=== PATIENT | female | born 1965 | race American Indian/Alaskan Native ===

== ENCOUNTER 2017-01-12 13:05 | Inpatient (IN) | payer MEDICAID ==
[2017-01-12 13:14] VITALS: BMI 28.1
[2017-01-12 13:17] VITALS: O2SAT 100
--- NOTE | 2017-01-12 13:18 | ED PDOC ---
Psych Transfer Clearance - Clearance Statement Clearance Statement: Reviewed vital signs, lab results and transfer papers. Patient clinically stable for psychiatric admission. Accepted by Dr. Ferris, with dx: MDD with severe psychotic features
[2017-01-12] MEDS ORDERED: Magnesium Hydroxide Susp 30 ml UD PO PRN (17:44)
[2017-01-12] MEDS ORDERED: Alum-Mag Hydrox-Simethicone Susp (30 mL) PO PRN (17:44)
[2017-01-12] MEDS ORDERED: DiphenhydrAMINE 50 mg/ml Inj IM PRN (17:44)
--- NOTE | 2017-01-12 20:03 | PCM.BM ---
<Hai Burnett - Last Filed: 01/12/17 20:01> Treatment assets and liabiliti Patient Assests: adapts well, cooperative, ADL independent Patient Liabilities: live alone, physical pain - Milieu Protocol Maintain good personal hygiene: daily Encourage regular showers, daily Remind patient to perform daily oral care, every shift Assist patient to perform ADL's Conduct patient checks and document Observation sheet: Q15 minutes Maintain personal safety: daily Educate patient to report safety concerns to staff, every shift Monitor environment for contraband/sharps Medication safety: Monitor for expected outcome, potential side effects: daily, Assess barriers to learning: every shift, Assess readiness for medication education: every shift Family Contact Family involvement: Family/SO is involved - Goals for Treatment Patient goals for treatment: feel better Discharge/Continuing Care - Education Needs Education Needs: Family Medication, Family Diagnosis/Disease Process, Family Coping Skills, Family Anger Management skills, Family Community resources, Family Activities of Daily Living, Family Pain, Family Personal Hygiene/Grooming <Sarah Zafar - Last Filed: 01/13/17 11:37> - Diagnosis (1) Substance induced mood disorder Status: Acute Interventions: Medication management, psychotherapy, psychoeducation, counseling re: substance abuse 01/13/17 11:37 (2) Cocaine use disorder, severe, dependence Status: Acute Interventions: Medication management, psychotherapy, psychoeducation, counseling re: substance abuse 01/13/17 11:38 (3) Cannabis use disorder, severe, dependence Status: Acute Interventions: Medication management, psychotherapy, psychoeducation, counseling re: substance abuse 01/13/17 11:38 <Jada Márquez - Last Filed: 01/13/17 15:56> Family Contact Family involvement: No known Family/SO Family contacted how many times per week?: 1 - Goals for Treatment Patient goals for treatment: Pt to be encouraged to attend activity and clinical groups 3-5x per week to identify at least 2 contributing factors to depression and suicide attempt. Psycho-education to be provided to patient/ family regarding benefits of medications and treatment adherence. Pt to be encouraged to participate in group milieu to develop effective coping skills to reduce depression and free of suicide ideation. Coordinate discharge resource needs by providing referral for psychiatric treatment follow up in the community. Discharge/Continuing Care - Education Needs Education Needs: Family Medication, Family Diagnosis/Disease Process, Family Coping Skills, Family Anger Management skills, Family Placement options, Family Community resources, Family Uses of Medical Equipment, Family Personal Hygiene/ Grooming, Family Aftercare Safety Plan, Patient Medication, Patient Diagnosis/ Disease Process, Patient Coping Skills, Patient Anger Management skills, Patient Placement options, Patient Community resources, Patient Uses of Medical Equipment, Patient Personal Hygiene/Grooming, Patient Aftercare Safety Plan - Discharge Discharge Criteria: Tolerates medication w/o severe side effects, Free of Suicidal thoughts, Free of agitation, Normal sleep pattern, Ability to care for self, Reduction of target symptoms Discharge to:: Home, Residential - Additional Comments 01/13/17 15:53 Pt seen and discussed in team meeting. Reason for admission discussed and reviewed with pt. Pt stated reason for admission as "I had a pnic attack or whatever you call it." Pt was easily irritable and verbally abusive with staff members. Pt was vague and minimally answering team questions. Pt superficially cooperated in team meeting. Pt's medications reviewed and discussed. Pt requesting to be prescribed high dosage of medications. Attending MD reviewed medications with pt, please refer to MD progress note for additional information. Pt appears to be malingering and medication seeking; possibly secondary gain due to possible homelessness. It is unclear whether pt is homeless or if she has an apartment as pt refuses to provide information. Treatment plan discussed with pt and reviewed. Pt has a tentative discharge date for 01/15/17. - Treatment Team Participation Discussed with Family/SO: No Was Patient/Family/SO present at Treatment Team Meeting: Yes
[2017-01-12] MEDS ORDERED: Albuterol HFA 90 mcg/actuation (8 g) INH PRN (21:24)
[2017-01-12] MEDS: Insulin Lispro (humaLOG) 100 Units/ml Inj SC SCH (21:51)
[2017-01-13 07:32] LABS: THYROID STIMULATING HORMONE 2.26 mIU/ML (0.46-4.68)
[2017-01-13] MEDS: Insulin Lispro (humaLOG) 100 Units/ml Inj SC SCH ×4 (08:39→21:47)
[2017-01-13] MEDS: Tiotropium 18 mcg Cap For Inhalation INH SCH (08:41)
[2017-01-13] MEDS: Pantoprazole 40 mg EC Tab PO SCH (08:42)
[2017-01-13] MEDS ORDERED: Pneumococcal 23-Valent Vaccine IM ONE (09:00)
--- NOTE | 2017-01-13 10:32 | CARD ---
APPROVED REPORT EKG Measurement Heart [id number] <Conclusion> Normal sinus rhythm Nonspecific T wave abnormality Abnormal ECG
--- NOTE | 2017-01-13 11:46 | PCM.PSYCH ---
Initial Psychiatric Evaluation - Initial Psychiatric Evaluation Type of Admission: Voluntary Legal Status: Capacity Chief Complaint (in patient's own words): "They were incompetent at the other hospital." Patient's Reaction to Hospitalization: Patient was irritable, evasive and likely lying at various times throughout the interview. HPI: 51 yo female w/ history of cocaine and marijuana abuse, also known to feign symptoms to gain various medical and psychiatric admission, now presented w/ vague suicidal ideation and reported CAH. Patient now denies suicidal ideation or hallucinations to ticket writer. She seems not to be telling the truth to the ticket writer and others. She continues to abuse cocaine and marijuana. She denies current alcohol abuse. She is not complaint with psychiatric treatment or follow-up. She reports depressed mood and feeling like "hurting someone" but she was being vague and possibly intentionally threatening to intimidate the ticket writer. PPHx: Multiple past psychiatric admission, not compliant with outpatient treatment or medications; does not know which medications she took in the past. PMHx: HTN, DM, h/o AL, GERD, reported history of stroke, unclear if that is accurate ALL: Tomatoes SHx: Homeless, +cocaine and marijuana, denies current ETOH use Current Medications: Active Medications Generic Name Dose Route Start Last Admin Trade Name Freq PRN Reason Stop Dose Admin Acetaminophen 650 mg 01/12/17 17:44 01/13/17 08:58 Tylenol 325mg Tab PO 650 mg Q4 PRN Administration Pain, moderate (4-7) Al Hydrox/Mg Hydrox/Simethicone 30 ml 01/12/17 17:44 Maalox Plus 30 Ml PO Q4 PRN Dyspepsia Albuterol 2 puff 01/12/17 21:24 Ventolin Hfa 90 Mcg/Actuation (8 G) INH Q6 PRN Shortness of Breath Amlodipine Besylate 10 mg 01/13/17 09:00 01/13/17 08:42 Norvasc PO 10 mg DAILY [facility] Administration Diphenhydramine HCl 50 mg 01/12/17 17:44 Benadryl IM Q6 PRN Extrapyramidal S/S Unable PO Diphenhydramine HCl 50 mg 01/12/17 17:44 Benadryl PO Q6 PRN Extrapyramidal Symptoms Haloperidol 5 mg 01/12/17 17:44 Haldol PO Q4 PRN Agitation Haloperidol Lactate 5 mg 01/12/17 17:44 Haldol IM Q4 PRN Agitation, Unable to Take PO Home Med 40 mg 01/13/17 09:00 Omeprazole [Omeprazole] PO DAILY [facility] Influenza Virus Vaccine 0.5 ml 01/13/17 17:00 Afluria (Pf)(18yr & Older) IM 01/13/17 17:01 .ONCE ONE Insulin Human Lispro 0 units 01/12/17 22:00 01/13/17 11:17 Humalog SC 3 u ACHS [facility] Administration Protocol Lorazepam 2 mg 01/12/17 17:44 Ativan IM Q4 PRN Anxiety/Agitation,Unable PO Lorazepam 2 mg 01/12/17 17:44 Ativan PO Q4 PRN Anxiety/Agitation Losartan Potassium 50 mg 01/13/17 09:00 01/13/17 08:40 Cozaar PO 50 mg DAILY [facility] Administration Magnesium Hydroxide 30 ml 01/12/17 17:44 Milk Of Magnesia PO HS PRN Constipation Metformin HCl 500 mg 01/13/17 09:00 01/13/17 08:39 Glucophage PO 500 mg BID [facility] Administration Nicotine 1 patch 01/13/17 09:00 01/13/17 11:17 Nicoderm Cq TD 1 patch DAILY [facility] Administration Pantoprazole Sodium 40 mg 01/13/17 09:00 01/13/17 08:42 Protonix Ec Tab PO 40 mg DAILY [facility] Administration Sitagliptin Phosphate 100 mg 01/13/17 09:00 01/13/17 08:38 Januvia PO 100 mg DAILY [facility] Administration Tiotropium [place] 18 mcg 01/13/17 09:00 01/13/17 08:41 Spiriva INH 18 mcg DAILY [facility] Administration Past Psychiatric History - Past Psychiatric History Previous Treatment History: Inpatient Pertinent Medical Hx (Current Medical&Sleep Prob, Allergies): Allergies Allergy/AdvReac Type Severity Reaction Status Date / Time tomatoes Allergy ITCHING Uncoded 01/12/17 13:16 Albuterol HFA [Ventolin HFA 90 mcg/actuation (8 g)] 2 puff INH Q6 PRN 01/12/17 DULoxetine [Cymbalta] 20 mg PO Q12 01/12/17 Insulin Glargine,Hum.rec.anlog [Basaglar Kwikpen U-100] 15 units SQ HS 01/12/17 Insulin Glargine,Hum.rec.anlog [Basaglar Kwikpen U-100] 20 units SQ QAM Losartan [Cozaar] 50 mg PO DAILY 01/12/17 Omeprazole [Omeprazole] 40 mg PO DAILY 01/12/17 Pregabalin [Lyrica] 75 mg PO Q8 01/12/17 SITagliptin [Januvia] 100 mg PO DAILY 01/12/17 Tiotropium [Spiriva] 2 inhaler INH DAILY 01/12/17 amLODIPine [Norvasc] 10 mg PO DAILY 01/12/17 metFORMIN [glucOPHAGE] 500 mg PO BID 01/12/17 traZODone [Desyrel] 300 mg PO HS 01/12/17 Review of Systems - Psychiatric Psychiatric: As Per HPI (Unclear if the patient is truthfully reporting these symptoms), Abnormal Sleep Pattern, Anhedonia, Auditory Hallucinations, Behavioral Changes, Depression, Difficulty Concentrating, Hallucinations, Suicidal Ideation Mental Status Examination - Personal Presentation Personal Presentation: Looks older than stated age Additional comments: Poor hygiene - Affect Affect: Other (Irritable) - Motor Activity Motor Activity: Calm - Reliability in Providing Information Reliability in Providing Information: Other (Poor to intentionally withholding information) - Speech Speech: Organized - Mood Mood: Depressed ("Depressed") - Formal Thought Process Formal Thought Process: No Impairment - Hallucinations/Delusions Additional comments: No current AH/VH, patient not internally preoccupied - Obsessions/Compulsions Obsessions: No Compulsions: No - Cognitive Functions Orientation: Person, Place, Situation, Time Sensorium: Alert Attention/Concentration: Attentive Estimate of Intelligence: Average Judgement: Imparied, as evidence by: Poor judgement (Chronic substance abuser, manipulative towards others) Memory: Recent intact, as evidence by: Ability to recall events of the day, Remote intact, as evidenced by: Abilit to recall sig. life events, Remote intact , as evidenced by: Ability to recall historical events - Risk Risk: Homicidal - Limitations Limitations: Other (Homeless, Poverty) DSM 5 DX - DSM 5 DSM 5 Diagnosis: Substance induced mood disorder, Cocaine Use Disorder, Marijuana Use Disorder; r /o Malingering - Recommended/Plan of Treatment Treatment Recommendations and Plan of Treatment: Substance induced mood disorder, Cocaine Use Disorder, Marijuana Use Disorder; r /o Malingering -Admit to psychiatry -Trazodone 50 mg PO HS -Individual and group therapy -Obtain collateral history -Disposition planning Projected ELOS: 1-3 days Discharge Plan and Discharge Criteria: Discharge when psychiatrically stable
--- NOTE | 2017-01-13 15:13 | CP.PCM.CON ---
History of Present Illness - History of Present Illness History of Present Illness: Priya Cat is a pleasant 51 yo lady with PMHx of HTN, DM, NV, and stroke who presented with substance induced mood disorder with cocaine/marijuana abuse. She shares that she is often in and out of consciousness but functional. PMHx: HTN: on Amlodipine 10 mg DM: Insulin 20 units AM and 15 units PM She shares of history of stroke and NV in 11/2016; She shared of Falling in 12/09/2016 with R foot fracture; Casted. Psurg: none Allergies: tomatoes Psoc: Smoker on patch; history of alcohol abuse 2 years ago; Cocaine and marijuana use; Currently seeking assistance with housing. Pharmacy [facility]: [phone] [facility] in [place], [place] Review of Systems - Musculoskeletal Musculoskeletal: Abnormal Gait Additional comments: R lower foot cast; - Psychiatric Psychiatric: Depression, Memory Loss Past Patient History - Past Medical History & Family History Past Medical History?: Yes - Past Social History Smoking Status: Current Some Days Smoker Alcohol: None Drugs: Cannabis, Cocaine - CARDIAC Hx Angina: Yes Hx Heart Attack: Yes Hx Hypertension: Yes - NEUROLOGICAL HX Cerebrovascular Accident: Yes - ENDOCRINE/METABOLIC Hx Diabetes Mellitus Type 1: No Hx Diabetes Mellitus Type 2: Yes - MUSCULOSKELETAL/RHEUMATOLOGICAL Hx Back Pain: Yes Hx Falls: Yes Hx Fractures: Yes Hx Spinal Stenosis: Yes Hx Unsteady Gait: Yes - PSYCHIATRIC Hx Anxiety: Yes Hx Depression: Yes Hx Substance Use: Yes Meds Allergies/Adverse Reactions: Allergies Allergy/AdvReac Type Severity Reaction Status Date / Time tomatoes Allergy ITCHING Uncoded 01/12/17 13:16 - Medications Medications: Current Medications Acetaminophen (Tylenol 325mg Tab) 650 mg PO Q4 PRN PRN Reason: Pain, moderate (4-7) Last Admin: 01/13/17 08:58 Dose: 650 mg Al Hydrox/Mg Hydrox/Simethicone (Maalox Plus 30 Ml) 30 ml PO Q4 PRN PRN Reason: Dyspepsia Albuterol (Ventolin Hfa 90 Mcg/Actuation (8 G)) 2 puff INH Q6 PRN PRN Reason: Shortness of Breath Amlodipine Besylate (Norvasc) 10 mg PO DAILY [facility] Last Admin: 01/13/17 08:42 Dose: 10 mg Diphenhydramine HCl (Benadryl) 50 mg IM Q6 PRN PRN Reason: Extrapyramidal S/S Unable PO Diphenhydramine HCl (Benadryl) 50 mg PO Q6 PRN PRN Reason: Extrapyramidal Symptoms Haloperidol (Haldol) 5 mg PO Q4 PRN PRN Reason: Agitation Haloperidol Lactate (Haldol) 5 mg IM Q4 PRN PRN Reason: Agitation, Unable to Take PO Home Med (Omeprazole [Omeprazole]) 40 mg PO DAILY [facility] Influenza Virus Vaccine (Afluria (Pf)(18yr & Older)) 0.5 ml IM .ONCE ONE Stop: 01/13/17 17:01 Insulin Human Lispro (Humalog) 0 units SC ACHS [facility] PRN Reason: Protocol Last Admin: 01/13/17 11:17 Dose: 3 u Lorazepam (Ativan) 2 mg IM Q4 PRN PRN Reason: Anxiety/Agitation,Unable PO Lorazepam (Ativan) 2 mg PO Q4 PRN PRN Reason: Anxiety/Agitation Losartan Potassium (Cozaar) 50 mg PO DAILY [facility] Last Admin: 01/13/17 08:40 Dose: 50 mg Magnesium Hydroxide (Milk Of Magnesia) 30 ml PO HS PRN PRN Reason: Constipation Metformin HCl (Glucophage) 500 mg PO BID [facility] Last Admin: 01/13/17 08:39 Dose: 500 mg Nicotine (Nicoderm Cq) 1 patch TD DAILY [facility] Last Admin: 01/13/17 11:17 Dose: 1 patch Pantoprazole Sodium (Protonix Ec Tab) 40 mg PO DAILY [facility] Last Admin: 01/13/17 08:42 Dose: 40 mg Sitagliptin Phosphate (Januvia) 100 mg PO DAILY [facility] Last Admin: 01/13/17 08:38 Dose: 100 mg Tiotropium [place] (Spiriva) 18 mcg INH DAILY [facility] Last Admin: 01/13/17 08:41 Dose: 18 mcg Trazodone HCl (Desyrel) 50 mg PO [facility] Physical Exam - Eye Exam Eye Exam: EOMI, Normal appearance - Respiratory Exam Respiratory Exam: Clear to Auscultation Bilateral, NORMAL BREATHING PATTERN - Cardiovascular Exam Cardiovascular Exam: REGULAR RHYTHM, +S1, +S2 - GI/Abdominal Exam GI & Abdominal Exam: Normal Bowel Sounds, Soft - Extremities Exam Additional comments: L foot cast - Neurological Exam Neurological exam: Alert, CN II-XII Intact, Oriented x3 - Psychiatric Exam Psychiatric exam: Normal Affect, Normal Mood Additional comments: history of depressed mood Results - Vital Signs Recent Vital Signs: Last Vital Signs Temp 98.1 F 01/13/17 06:00 Pulse 82 01/13/17 08:42 Resp 18 01/13/17 06:00 BP 160/96 H 01/13/17 08:42 Pulse Ox 100 01/12/17 13:14 - Labs Labs: Laboratory Results - last 24 hr 01/12/17 01/13/17 01/13/17 19:43 05:51 06:15 POC Glucose (mg/dL) 301 H 177 H Hemoglobin A1c Triglycerides 91 Cholesterol 120 LDL Cholesterol Direct 39 HDL Cholesterol 58 TSH 3rd Generation 2.26 01/13/17 01/13/17 06:15 10:57 POC Glucose (mg/dL) 295 H Hemoglobin A1c 7.9 H Triglycerides Cholesterol LDL Cholesterol Direct HDL Cholesterol TSH 3rd Generation Assessment & Plan - Assessment and Plan (Free Text) Plan: Priya Cat is a pleasant 51 yo lady with PMHx of HTN, DM, NV, and stroke who presented with substance induced mood disorder with cocaine/marijuana abuse. 1) HTN - Amlodipine 10 - continue monitoring vitals 2) DM - Insulin -Continue accuchecks - Hba1c: 7.9 3) Neuropathy -Lyrica 4) history of L foot fracture -Per patient: casted since 12/09/2016 -xray foot/ankle ordered Bairon Olivo, PGY1
[2017-01-13] MEDS ORDERED: Influenza Vaccine 18yr & older 0.5 ML/45 MCG SYR IM ONE (17:00)
--- NOTE | 2017-01-13 21:10 | CP.PCM.CON ---
History of Present Illness - History of Present Illness History of Present Illness: 51 y.o female with PMHx of DM, neuropathy, HTN, IN, stroke, asthma, angina, lumbar fracture, left side weakness and neuropathy and mental illness consulted by podiatry for s/p 1 month right ankle fracture secondary to trauma. Patient reports having left sided weakness and neuropathy. 1 month ago as she was getting up to walk, her left side gave out which caused her to fall and injured her right ankle. Patient reports going to [facility] ED where x-rays were taken and told she fractured her right ankle. She followed up in clinic 2 weeks ago where she was put in the cast and told to NWB in crutches. Patient reports being NWB is difficult as she lives in a place with stairs. She reports being non compliant. Patient is seen WB in right cast with no ambulatory aid. Cast is intact but worn and broken down plantarly. Reports mild numbness and tingling to the toes. She denies n/v/sob/cp/chill or f. She reports no pain to the lower extremity. Patient reports feeling irritated and prefers to be seen with sister at bedside. Patient reports that she gets confused easily and her "mind blacking out" often. PMH: DM, neuropathy, HTN, IN, stroke, asthma, angina, lumbar fracture, left side weakness and neuropathy and mental illness PSH: denies SH: reports smoking 35+ year on and off 1 pack a week, reports cocaine, marijuana, and weed use MEDS: see medication list ALL: tomatoes, itch FH: Cancer, scolosis, HTN, DM, mental issues Past Patient History - Past Medical History & Family History Past Medical History?: Yes - Past Social History Smoking Status: Current Some Days Smoker Alcohol: None Drugs: Cannabis, Cocaine - CARDIAC Hx Angina: Yes Hx Heart Attack: Yes Hx Hypertension: Yes - NEUROLOGICAL HX Cerebrovascular Accident: Yes - ENDOCRINE/METABOLIC Hx Diabetes Mellitus Type 1: No Hx Diabetes Mellitus Type 2: Yes - MUSCULOSKELETAL/RHEUMATOLOGICAL Hx Back Pain: Yes Hx Falls: Yes Hx Fractures: Yes Hx Spinal Stenosis: Yes Hx Unsteady Gait: Yes - PSYCHIATRIC Hx Anxiety: Yes Hx Depression: Yes Hx Substance Use: Yes Meds Allergies/Adverse Reactions: Allergies Allergy/AdvReac Type Severity Reaction Status Date / Time tomatoes Allergy ITCHING Uncoded 01/12/17 13:16 - Medications Medications: Current Medications Acetaminophen (Tylenol 325mg Tab) 650 mg PO Q4 PRN PRN Reason: Pain, moderate (4-7) Last Admin: 01/13/17 08:58 Dose: 650 mg Al Hydrox/Mg Hydrox/Simethicone (Maalox Plus 30 Ml) 30 ml PO Q4 PRN PRN Reason: Dyspepsia Albuterol (Ventolin Hfa 90 Mcg/Actuation (8 G)) 2 puff INH Q6 PRN PRN Reason: Shortness of Breath Amlodipine Besylate (Norvasc) 10 mg PO DAILY [facility] Last Admin: 01/13/17 08:42 Dose: 10 mg Diphenhydramine HCl (Benadryl) 50 mg IM Q6 PRN PRN Reason: Extrapyramidal S/S Unable PO Diphenhydramine HCl (Benadryl) 50 mg PO Q6 PRN PRN Reason: Extrapyramidal Symptoms Haloperidol (Haldol) 5 mg PO Q4 PRN PRN Reason: Agitation Haloperidol Lactate (Haldol) 5 mg IM Q4 PRN PRN Reason: Agitation, Unable to Take PO Home Med (Omeprazole [Omeprazole]) 40 mg PO DAILY [facility] Home Med (Insulin Glargine,Hum.Rec.Anlog [Basaglar Kwikpen U-100]) 15 units SQ HS [facility] Home Med (Insulin Glargine,Hum.Rec.Anlog [Basaglar Kwikpen U-100]) 20 units SQ QAM [facility] Insulin Human Lispro (Humalog) 0 units SC ACHS [facility] PRN Reason: Protocol Last Admin: 01/13/17 17:10 Dose: 2 u Lorazepam (Ativan) 2 mg IM Q4 PRN PRN Reason: Anxiety/Agitation,Unable PO Lorazepam (Ativan) 2 mg PO Q4 PRN PRN Reason: Anxiety/Agitation Losartan Potassium (Cozaar) 50 mg PO DAILY [facility] Last Admin: 01/13/17 08:40 Dose: 50 mg Magnesium Hydroxide (Milk Of Magnesia) 30 ml PO HS PRN PRN Reason: Constipation Metformin HCl (Glucophage) 500 mg PO BID [facility] Last Admin: 01/13/17 17:08 Dose: 500 mg Nicotine (Nicoderm Cq) 1 patch TD DAILY [facility] Last Admin: 01/13/17 11:17 Dose: 1 patch Pantoprazole Sodium (Protonix Ec Tab) 40 mg PO DAILY [facility] Last Admin: 01/13/17 08:42 Dose: 40 mg Pregabalin (Lyrica) 75 mg PO Q8 [facility] Last Admin: 01/13/17 17:12 Dose: 75 mg Sitagliptin Phosphate (Januvia) 100 mg PO DAILY [facility] Last Admin: 01/13/17 08:38 Dose: 100 mg Tiotropium [place] (Spiriva) 18 mcg INH DAILY [facility] Last Admin: 01/13/17 08:41 Dose: 18 mcg Trazodone HCl (Desyrel) 50 mg PO HS [facility] Physical Exam - Constitutional Appears: Well, Non-toxic, Confused - Neurological Exam Neurological exam: Alert, Oriented x3 - Psychiatric Exam Psychiatric exam: Agitated, Flat Affect Results - Vital Signs Recent Vital Signs: Last Vital Signs Temp 98.1 F 01/13/17 06:00 Pulse 82 01/13/17 08:42 Resp 18 01/13/17 06:00 BP 160/96 H 01/13/17 08:42 Pulse Ox 100 01/12/17 13:14 - Labs Labs: Laboratory Results - last 24 hr 01/13/17 01/13/17 01/13/17 05:51 06:15 06:15 POC Glucose (mg/dL) 177 H Hemoglobin A1c Triglycerides 91 Cholesterol 120 LDL Cholesterol Direct 39 HDL Cholesterol 58 TSH 3rd Generation 2.26 RPR Nonreactive 01/13/17 01/13/17 01/13/17 06:15 10:57 15:35 POC Glucose (mg/dL) 295 H 223 H Hemoglobin A1c 7.9 H Triglycerides Cholesterol LDL Cholesterol Direct HDL Cholesterol TSH 3rd Generation [facility] Assessment & Plan - Assessment and Plan (Free Text) Assessment: 51 y.o female with PMHx of DM, neuropathy, HTN, IN, stroke, asthma, angina, lumbar fracture, left side weakness and neuropathy and mental illness consulted by podiatry for s/p 1 month right ankle fracture secondary to trauma Plan: Patient seen and examined Charts, labs, vitals reviewed Discussed the plan in detail with attending Dr. Mcneill X-rays results- oblique displaced fracture of distal fibular. Will take new set of x-rays without plaster cast for better visualization of fracture Will return today to remove cast prior to x-rays Further recommendations pending new x-rays Will continue to follow patient while in house
[2017-01-13] MEDS ORDERED: INSULIN GLARGINE HUM REC ANLOG 15 UNIT SQ SCH (22:00)
[2017-01-14] MEDS: Insulin Lispro (humaLOG) 100 Units/ml Inj SC SCH ×4 (08:14→23:06)
[2017-01-14] MEDS: Pantoprazole 40 mg EC Tab PO SCH (08:15)
[2017-01-14] MEDS: Tiotropium 18 mcg Cap For Inhalation INH SCH (08:16)
[2017-01-14] MEDS ORDERED: INSULIN GLARGINE HUM REC ANLOG 20 UNIT SQ SCH (09:00)
--- NOTE | 2017-01-14 10:44 | PCM.PYCHPN ---
Psychiatric Progress Note - Psychiatric Progress Note Patient seen today, length of contact: Patient evaluated, case discussed with team, chart reviewed, 35 min Patient Chief Complaint: "I'm okay." Problems Identified/Issues Discussed: Patient continues to give inconsistent information to various staff members. She told financial writer that she continues to feel depressed and anxious. She denies current ideation to harm self or others. She is focused on housing concerns. She denies AH/VH/paranoia/delusions. Patient reports that she was previously on Trazodone 300 mg PO HS and requested continued titration of the medication. Medication Change: Yes (Increase Trazodone to 100 mg PO HS) Medical Record Reviewed: Yes Consults ordered or reviewed: Medicine consult Mental Status Examination - Cognitive Function Orientation: Person, Place, Situation, Time Memory: Intact Attention: WNL Concentration: WNL Association: WNL Fund of Knowledge: WNL - Mood Mood: Depressed - Affect Affect: Broad - Speech Speech: Appropriate - Formal Thought Process Formal Thought Process: No Impairment Psychotic Thoughts and Behaviors: Denies AH/VH/paranoia/delusions - Suicidal Ideation Suicidal Ideation: No - Homicidal Ideation Homicidal Ideation: No Goal/Treatment Plan - Goal/Treatment Plan Need for Continued Stay: Remain at risks for inpatient hospitalization Progress Toward Problem(s) and Goals/Treatment Plan: Substance induced mood disorder, Cocaine Use Disorder, Marijuana Use Disorder; r /o Malingering; will monitor an additional day and likely discharge tomorrow. -Increase Trazodone to 100 mg PO HS -Individual and group therapy -Obtain collateral history -Disposition planning Estimated Date of D/C: 01/15/17 - Smoking Cessation Smoking Cessation Initiated: Yes
--- NOTE | 2017-01-14 11:40 | RAD ---
PROCEDURE: Right Foot Radiographs. HISTORY: poss ankle fx COMPARISON: None. FINDINGS: BONES: The study was obtained through plaster cast. There is no fracture seen in the mid and distal foot. The ankle was evaluated separately JOINTS: Normal. SOFT TISSUES: Normal. OTHER FINDINGS: None. IMPRESSION: The study was obtained through plaster cast. There is no fracture seen in the mid and distal foot. The ankle was evaluated separately
--- NOTE | 2017-01-14 11:41 | RAD ---
PROCEDURE: Right Ankle Radiographs. HISTORY: history of R foot fracture COMPARISON: None FINDINGS: BONES: There is an obliquely oriented displaced fracture of the distal fibula. The study was obtained through plaster cast. There is no significant displacement seen on the AP view JOINTS: Normal. No osteoarthritis. Ankle mortise maintained. Talar dome intact SOFT TISSUES: Normal. OTHER FINDINGS: None. IMPRESSION: Oblique fracture of the distal fibula
--- NOTE | 2017-01-14 16:38 | CP.PCM.PN ---
Subjective - Date & Time of Evaluation Date of Evaluation: 01/14/17 Time of Evaluation: 16:37 - Subjective Subjective: Podiatry Progress Note - Dr. Mcneill 51 year old female patient PMH of DM, HTN, CA. She was consulted to podiatry s/ p 1 month right ankle fracture secondary to patient fall. Patient admits to having neuropathy and left sided weakness which she believes caused the fall. Patient presented to an outside hospital, [facility], where she was casted and was told to be non-weight bearing with the assistance of crutches. Since the initial injury, patient states she has been bearing weight on the cast. Currently, patient denies any pain to her right ankle. Patient denies any acute events overnight. Patient denies N/V/F/D/C/SOB/calf pain. Offers no other pedal complaints at this time. Objective - Vital Signs/Intake and Output Vital Signs (last 24 hours): Temp Pulse Resp BP Pulse Ox 98.2 F 90 20 118/75 100 01/14/17 16:32 01/14/17 16:32 01/14/17 16:32 01/14/17 16:32 01/12/17 13:14 - Medications Medications: Current Medications Acetaminophen (Tylenol 325mg Tab) 650 mg PO Q4 PRN PRN Reason: Pain, moderate (4-7) Last Admin: 01/14/17 08:23 Dose: 650 mg Al Hydrox/Mg Hydrox/Simethicone (Maalox Plus 30 Ml) 30 ml PO Q4 PRN PRN Reason: Dyspepsia Albuterol (Ventolin Hfa 90 Mcg/Actuation (8 G)) 2 puff INH Q6 PRN PRN Reason: Shortness of Breath Amlodipine Besylate (Norvasc) 10 mg PO DAILY [facility] Last Admin: 01/14/17 08:13 Dose: 10 mg Diphenhydramine HCl (Benadryl) 50 mg IM Q6 PRN PRN Reason: Extrapyramidal S/S Unable PO Diphenhydramine HCl (Benadryl) 50 mg PO Q6 PRN PRN Reason: Extrapyramidal Symptoms Last Admin: 01/13/17 23:02 Dose: 50 mg Haloperidol (Haldol) 5 mg PO Q4 PRN PRN Reason: Agitation Haloperidol Lactate (Haldol) 5 mg IM Q4 PRN PRN Reason: Agitation, Unable to Take PO Home Med (Omeprazole [Omeprazole]) 40 mg PO DAILY [facility] Home Med (Insulin Glargine,Hum.Rec.Anlog [Basaglar Kwikpen U-100]) 15 units SQ HS [facility] Home Med (Insulin Glargine,Hum.Rec.Anlog [Basaglar Kwikpen U-100]) 20 units SQ QAM [facility] Insulin Human Lispro (Humalog) 0 units SC ACHS [facility] PRN Reason: Protocol Last Admin: 01/14/17 12:41 Dose: 1 u Lorazepam (Ativan) 2 mg IM Q4 PRN PRN Reason: Anxiety/Agitation,Unable PO Lorazepam (Ativan) 2 mg PO Q4 PRN PRN Reason: Anxiety/Agitation Losartan Potassium (Cozaar) 50 mg PO DAILY [facility] Last Admin: 01/14/17 08:15 Dose: 50 mg Magnesium Hydroxide (Milk Of Magnesia) 30 ml PO HS PRN PRN Reason: Constipation Metformin HCl (Glucophage) 500 mg PO BID [facility] Last Admin: 01/14/17 08:15 Dose: 500 mg Nicotine (Nicoderm Cq) 1 patch TD DAILY [facility] Last Admin: 01/14/17 08:13 Dose: 1 patch Pantoprazole Sodium (Protonix Ec Tab) 40 mg PO DAILY [facility] Last Admin: 01/14/17 08:15 Dose: 40 mg Pregabalin (Lyrica) 75 mg PO Q8 [facility] Last Admin: 01/14/17 10:17 Dose: 75 mg Sitagliptin Phosphate (Januvia) 100 mg PO DAILY [facility] Last Admin: 01/14/17 08:13 Dose: 100 mg Tiotropium [place] (Spiriva) 18 mcg INH DAILY [facility] Last Admin: 01/14/17 08:16 Dose: 18 mcg Trazodone HCl (Desyrel) 100 mg PO [facility] - Constitutional Appears: Well, Non-toxic, No Acute Distress - Extremities Exam Additional comments: VASC: DP and PT pulses palpable b/l. CFT WNL b/l. No edema noted. TG WNL b/l. Hair growth diminished bilaterally. NEURO: Gross sensation diminished to LLE, WNL to RLE. No allodynia to RLE. DERM: Xerosis noted to RLE. No open lesions, erythema noted. ORTHO: No pain on palpation noted to right lateral ankle. No pain upon right ankle joint ROM. Muscle strength 5/5 for all dorsiflexors, plantarflexors, inverters, and eveters b/l with no pain or crepitus noted. - Neurological Exam Neurological Exam: Alert, Awake, Oriented x3 - Psychiatric Exam Psychiatric exam: Normal Affect, Normal Mood Assessment and Plan - Assessment and Plan (Free Text) Assessment: 51 y.o female with PMHx of DM, neuropathy, HTN, CA, stroke s/p 1 month right ankle fracture 2/2 mechanical fall Plan: Patient seen and evaluated at bedside Discussed with attending, Dr. Mcneill Labs and vitals reviewed = afebrile Cast removed without incident RLE cleansed with sterile saline RLE XR reviewed = oblique fracture of the distal fibula Additional RLE XR ordered for better visualization of fracture site s/p cast removal, F/U CAM boot ordered for patient RLE -Patient to be NWB in wheelchair until CAM boot is dispensed -Wheelchair management ordered -Physical therapy ordered for wheelchair training and transfer training Follow up discharge plans Stable from podiatry standpoint Podiatry will continue to follow patient while in house
[2017-01-15 06:00] VITALS: PULSE 87; RESP 18; TEMP 98.1
--- NOTE | 2017-01-15 06:00 | CP.PCM.PN ---
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 Patient seen out of room and walking FWB to RLE, unprotected and not using assistive devices. Patient denies any pain to her right leg - patient aware she was supposed to be NWB in wheelchair until further notice but states her head hurt so much she had to walk out into the hallway. Patient distraught, crying because of current headache. Patient denies N/V/F/D/C/SOB/calf pain. Offers no other pedal complaints at this time. Objective - Vital Signs/Intake and Output Vital Signs (last 24 hours): Temp Pulse Resp BP Pulse Ox 98.2 F 90 20 118/75 100 01/14/17 16:32 01/14/17 16:32 01/14/17 16:32 01/14/17 16:32 01/12/17 13:14 - Medications Medications: Current Medications Acetaminophen (Tylenol 325mg Tab) 650 mg PO Q4 PRN PRN Reason: Pain, moderate (4-7) Last Admin: 01/14/17 08:23 Dose: 650 mg Al Hydrox/Mg Hydrox/Simethicone (Maalox Plus 30 Ml) 30 ml PO Q4 PRN PRN Reason: Dyspepsia Albuterol (Ventolin Hfa 90 Mcg/Actuation (8 G)) 2 puff INH Q6 PRN PRN Reason: Shortness of Breath Amlodipine Besylate (Norvasc) 10 mg PO DAILY [facility] Last Admin: 01/14/17 08:13 Dose: 10 mg Diphenhydramine HCl (Benadryl) 50 mg IM Q6 PRN PRN Reason: Extrapyramidal S/S Unable PO Diphenhydramine HCl (Benadryl) 50 mg PO Q6 PRN PRN Reason: Extrapyramidal Symptoms Last Admin: 01/13/17 23:02 Dose: 50 mg Haloperidol (Haldol) 5 mg PO Q4 PRN PRN Reason: Agitation Haloperidol Lactate (Haldol) 5 mg IM Q4 PRN PRN Reason: Agitation, Unable to Take PO Home Med (Omeprazole [Omeprazole]) 40 mg PO DAILY [facility] Home Med (Insulin Glargine,Hum.Rec.Anlog [Basaglar Kwikpen U-100]) 15 units SQ HS [facility] Home Med (Insulin Glargine,Hum.Rec.Anlog [Basaglar Kwikpen U-100]) 20 units SQ QAM [facility] Insulin Human Lispro (Humalog) 0 units SC ACHS [facility] PRN Reason: Protocol Last Admin: 01/14/17 23:06 Dose: Not Given Lorazepam (Ativan) 2 mg IM Q4 PRN PRN Reason: Anxiety/Agitation,Unable PO Lorazepam (Ativan) 2 mg PO Q4 PRN PRN Reason: Anxiety/Agitation Losartan Potassium (Cozaar) 50 mg PO DAILY [facility] Last Admin: 01/14/17 08:15 Dose: 50 mg Magnesium Hydroxide (Milk Of Magnesia) 30 ml PO HS PRN PRN Reason: Constipation Metformin HCl (Glucophage) 500 mg PO BID [facility] Last Admin: 01/14/17 17:21 Dose: 500 mg Nicotine (Nicoderm Cq) 1 patch TD DAILY [facility] Last Admin: 01/14/17 08:13 Dose: 1 patch Pantoprazole Sodium (Protonix Ec Tab) 40 mg PO DAILY [facility] Last Admin: 01/14/17 08:15 Dose: 40 mg Pregabalin (Lyrica) 75 mg PO Q8 [facility] Last Admin: 01/14/17 17:20 Dose: 75 mg Sitagliptin Phosphate (Januvia) 100 mg PO DAILY [facility] Last Admin: 01/14/17 08:13 Dose: 100 mg Tiotropium [place] (Spiriva) 18 mcg INH DAILY [facility] Last Admin: 01/14/17 08:16 Dose: 18 mcg Trazodone HCl (Desyrel) 100 mg PO HS [facility] Last Admin: 01/14/17 23:00 Dose: 100 mg - Constitutional Appears: Well, Non-toxic, No Acute Distress - Extremities Exam Additional comments: VASC: DP and PT pulses palpable b/l. CFT WNL b/l. No edema noted. TG WNL b/l. Hair growth diminished bilaterally. NEURO: Gross sensation diminished to LLE, WNL to RLE. No allodynia to RLE. DERM: Xerosis noted to RLE. No open lesions, erythema noted. ORTHO: No pain on palpation noted to right lateral ankle. No pain upon right ankle joint ROM. Muscle strength 5/5 for all dorsiflexors, plantarflexors, inverters, and eveters b/l with no pain or crepitus noted. - Neurological Exam Neurological Exam: Alert, Awake, Oriented x3 - Psychiatric Exam Psychiatric exam: Normal Affect, Normal Mood Assessment and Plan - Assessment and Plan (Free Text) Assessment: 51 y.o female with PMHx of DM, neuropathy, HTN, NM, stroke s/p 1 month right ankle fracture 2/2 mechanical fall Plan: Patient seen and evaluated at bedside Discussed with attending, Dr. Mcneill Labs and vitals reviewed = afebrile RLE XR reviewed (w/o cast) = Oblique fracture right fibula above ankle mortise, healing. Patient re-casted - recommend patient to be NWB RLE with the assistance of crutches as further immobilization is warranted for full healing between fracture fragments Patient to be discharged today Stable from podiatry standpoint Recommend patient to follow up in podiatry clinic for removal of cast and evaluation of right fibular fracture on an outpatient basis
--- NOTE | 2017-01-15 08:48 | PCM.PYCHDC ---
Mental Status Examination - Mental Status Examination Orientation: Person, Place, Situation, Time Memory: Intact Mood: Neutral Affect: Broad Speech: Appropriate Attention: WNL Concentration: WNL Association: WNL Fund of Knowledge: WNL Formal Thought Process: No Impairment Description of patient's judgement and insight: Chronic poor I/J re: chronic substance abuse Psychotic Thoughts and Behaviors: Denies AH/VH/paranoia/delusions Suicidal Ideation: No Current Homicidal Ideation?: No Discharge Summary - Discharge Note Reason for Hospitalization: Patient was irritable, evasive and likely lying at various times throughout the interview. HPI: 51 yo female w/ history of cocaine and marijuana abuse, also known to feign symptoms to gain various medical and psychiatric admission, now presented w/ vague suicidal ideation and reported CAH. Patient now denies suicidal ideation or hallucinations to designer/writer. She seems not to be telling the truth to the designer/writer and others. She continues to abuse cocaine and marijuana. She denies current alcohol abuse. She is not complaint with psychiatric treatment or follow-up. She reports depressed mood and feeling like "hurting someone" but she was being vague and possibly intentionally threatening to intimidate the designer/writer. PPHx: Multiple past psychiatric admission, not compliant with outpatient treatment or medications; does not know which medications she took in the past. PMHx: HTN, DM, h/o DE, GERD, reported history of stroke, unclear if that is accurate ALL: [place] SHx: Homeless, +cocaine and marijuana, denies current ETOH use Laboratory Data: Abnormal Lab Results 01/12/17 01/14/17 01/14/17 17:00 11:56 15:21 POC Glucose (mg/dL) 204 H 159 H Thyroxine (T4) 13.1 H 01/14/17 01/14/17 01/15/17 19:13 21:49 05:41 POC Glucose (mg/dL) 231 H 173 H 157 H Thyroxine (T4) Consultations:: List each consultation separately and include: 1. Reason for request. 2. Findings. 3. Follow-up Consultations: Medicine consult, Podiatry Consult Summary of Hospital Course include:: 1. Description of specific treatment plan utilized for patients during their course of treatmen. 2. Summarize the time- course for resolution of acute symptoms and/or regressed behaviors. 3. Describe issues identified and worked on during hospitalization. 4. Describe medication utilized. 5. Describe medical problems identified and treated. 6. Reassessment of suicide risk Summary of Hospital Course: Patient was admitted to the psychiatry unit. Individual and group therapy were provided. Patient was restarted on Trazodone 100 mg PO HS. She has been non- compliant with treatment and medications. Psychoeducation provided re: substance abuse. Patient has recurrent psychiatric hospitalizations, likely for secondary gain of housing. - Diagnosis (1) Substance induced mood disorder Current Visit: Yes Status: Acute (2) Cocaine use disorder, severe, dependence Current Visit: Yes Status: Acute (3) Cannabis use disorder, severe, dependence Current Visit: Yes Status: Acute - Final Diagnosis (DSM 5) Condition upon Discharge: STABLE DSM 5: Substance induced mood disorder, Cocaine Use Disorder, Marijuana Use Disorder Disposition: HOME/ ROUTINE Follow-up Treatment Plan: Substance induced mood disorder, Cocaine Use Disorder, Marijuana Use Disorder; r /o Malingering; patient psychiatrically stable for discharge. -Individual and group therapy -Psychoeducation provided -Continue Trazodone 100 mg PO HS -Patient reports that she has sufficient prescriptions for her medical medications at home and will follow-up with a medical doctor after discharge -Discharge w/ outpatient follow-up Prescriptions/Medication Reconciliation: traZODone [Desyrel] 100 mg PO HS #30 tab - Smoking Cessation Smoking Cessation Medication prescribed: Yes - Antipsychotic Medications Pt discharged on 2 or more routine antipsychotic medications: No
[2017-01-15] MEDS: Pantoprazole 40 mg EC Tab PO SCH (09:19)
[2017-01-15] MEDS: Tiotropium 18 mcg Cap For Inhalation INH SCH (09:21)
[2017-01-15 09:26] VITALS: BP 120/67
[2017-01-15] MEDS: Insulin Lispro (humaLOG) 100 Units/ml Inj SC SCH ×2 (09:27→12:32)
--- NOTE | 2017-01-15 14:09 | RAD ---
PROCEDURE: Right Foot Radiographs. HISTORY: s/p right ankle fracture COMPARISON: 01/13/2017 FINDINGS: BONES: No acute fractures identified right foot. Incompletely visualize distal right fibular fracture. JOINTS: Normal. SOFT TISSUES: Normal. OTHER FINDINGS: None. IMPRESSION: No significant interval change compared to the prior examination(s).
--- NOTE | 2017-01-15 14:09 | RAD ---
PROCEDURE: Right Ankle Radiographs. HISTORY: s/p right ankle fracture COMPARISON: 01/13/2017 FINDINGS: BONES: Better visualization of obliques fracture above the ankle mortise right fibula. Major fracture fragments are anatomically aligned. JOINTS: Normal. No osteoarthritis. Ankle mortise maintained. Talar dome intact SOFT TISSUES: Soft tissue swelling again identified, better visualized in the absence of fiberglass cast identified previously OTHER FINDINGS: None. IMPRESSION: Anatomic alignment of healing fracture distal right fibula.
[2017-01-15] MEDS ORDERED: Insulin Detemir 100 Units/ml Inj SC SCH (22:00)
[2017-01-16] MEDS ORDERED: Insulin Detemir 100 Units/ml Inj SC SCH (10:00)
== END 2017-01-15 16:17 | disposition home or self-care (01) | DRG 747 ==
LOC: H.ER 13:05 → H.PSYCH 13:18 → H.STEP 17:15
PROVIDERS: ADMIT Psychiatry & Neurology Psychiatry; ATTEND Psychiatry & Neurology Psychiatry
PROC: HZ52ZZZ Individual Psychotherapy for Substance Abuse Treatment, Cognitive-Behavioral (ICD-10-PCS; principal; 2017-01-12)
PROC: GZHZZZZ Group Psychotherapy (ICD-10-PCS; 2017-01-12)
PROC: GZ58ZZZ Individual Psychotherapy, Cognitive-Behavioral (ICD-10-PCS; 2017-01-12)
PROC: 3E0234Z Introduction of Serum, Toxoid and Vaccine into Muscle, Percutaneous Approach (ICD-10-PCS; 2017-01-13)
DX: F14.24 Cocaine dependence with cocaine-induced mood disorder (principal); E11.40 Type 2 diabetes mellitus with diabetic neuropathy, unspecified; F12.20 Cannabis dependence, uncomplicated; R45.851 Suicidal ideations; S82.891A Other fracture of right lower leg, initial encounter for closed fracture; F32.9 Major depressive disorder, single episode, unspecified; I10 Essential (primary) hypertension; K21.9 Gastro-esophageal reflux disease without esophagitis; J45.909 Unspecified asthma, uncomplicated; W19.XXXA Unspecified fall, initial encounter; I25.2 Old myocardial infarction; Z91.14 Patient's other noncompliance with medication regimen; Z91.19 Patient's noncompliance with other medical treatment and regimen; Z23 Encounter for immunization; F17.210 Nicotine dependence, cigarettes, uncomplicated; Z79.4 Long term (current) use of insulin; Z86.73 Personal history of transient ischemic attack (TIA), and cerebral infarction without residual deficits; Z59.0 Homelessness